=== PATIENT | male | born 1940 | race Caucasian/White ===

== ENCOUNTER 2017-10-06 07:06 | Day surgery (SDC) | payer MEDICARE ==
[2017-10-06 07:38] VITALS: BMI 28.3
[2017-10-06] MEDS ORDERED: Propofol 10 mg/ml Inj (20 ML) ONE (08:33)
[2017-10-06] MEDS ORDERED: Lactated Ringer's 1,000 ML IV ONE (08:35)
--- NOTE | 2017-10-06 08:37 | CP.SDSHP ---
Same Day Surgery H & P - History Proposed Procedure: EGD Pre-Op Diagnosis: Dysphagia - Previous Medical/Surgical History Endocrine/Metabolic: Thyroid Disease, Other Comments: Hyperlipidemia, BPH Previous Surgical History: Right lung surgery - Allergies Allergies: Allergies Sulfa (Sulfonamide Antibiotics) Allergy (Verified 10/06/17 07:37) RASH - Current Medications Current Medications: See reconciliation sheet - Physical Exam General Appearance: WD WN male in NAD Vital Signs: Vital Signs 10/06/17 07:42 Temperature 97.9 F Pulse Rate 76 Respiratory 16 Rate Blood Pressure 160/90 H O2 Sat by Pulse 98 Oximetry Mental Status: Alert & Oriented x3 Neuro: WNL Heart: WNL Lungs: WNL GI: WNL - {Optional Preform as Required} Abdomen: WNL - Impression Impression: Dysphagia Pt. Evaluated Today:Candidate for Anesthesia & Procedure: Yes - Date & Time Date: 10/06/17 Time: 08:38 Short Stay Discharge - Short Stay Discharge Admitting Diagnosis/Reason for Visit: OTHER DYSPHAGIA Disposition: HOME/ ROUTINE
[2017-10-06 14:58] VITALS: TEMP 97
[2017-10-06 15:01] VITALS: RESP 20
[2017-10-06 15:07] VITALS: BP 145/82; PULSE 80; O2SAT 99
== END 2017-10-06 10:25 | disposition home or self-care (01) ==
LOC: C.ENDO 07:06
PROVIDERS: ATTEND Internal Medicine Gastroenterology
DX: K29.70 Gastritis, unspecified, without bleeding (principal); E78.5 Hyperlipidemia, unspecified; K22.8 Other specified diseases of esophagus; K44.9 Diaphragmatic hernia without obstruction or gangrene
CPT/HCPCS: 43239; 88305; J2001; J2704; J7120

== ENCOUNTER 2017-10-20 08:12 | Day surgery (SDC) | payer MEDICARE ==
[2017-10-20] MEDS ORDERED: Propofol 10 mg/ml Inj (20 ML) ONE (10:01)
[2017-10-20] MEDS ORDERED: Midazolam 2 MG/2 ML VIAL ONE (10:01)
--- NOTE | 2017-10-20 10:06 | CP.SDSHP ---
Same Day Surgery H & P - History Proposed Procedure: eus Pre-Op Diagnosis: subepithelial lesion of esophagus - Allergies Allergies: Allergies Sulfa (Sulfonamide Antibiotics) Allergy (Verified 10/17/17 10:51) SWELLING - Physical Exam General Appearance: nl Vital Signs: Vital Signs 10/20/17 08:32 Temperature 99 F Pulse Rate 70 Respiratory 19 Rate Blood Pressure 143/86 O2 Sat by Pulse 99 Oximetry Mental Status: Alert & Oriented x3 Neuro: WNL Heart: WNL Lungs: WNL GI: WNL - {Optional Preform as Required} Abdomen: WNL - Impression Impression: subepithelial lesion of esophagus. eus Pt. Evaluated Today:Candidate for Anesthesia & Procedure: Yes Short Stay Discharge - Short Stay Discharge Admitting Diagnosis/Reason for Visit: SUBEPITHELIAL LESION OF ESOPHAGUS Disposition: HOME/ ROUTINE
[2017-10-20] MEDS ORDERED: Lactated Ringer's 1,000 ML IV ONE (10:07)
[2017-10-20] MEDS ORDERED: Strong Iodine Topical Sol. 5%-10% TOP ONE (10:25)
[2017-10-20] MEDS ORDERED: Lactated Ringer's 500 ML IV SCH (10:45)
[2017-10-20 11:01] VITALS: TEMP 98
[2017-10-20 11:09] VITALS: O2SAT 100
[2017-10-20 11:34] VITALS: BP 132/67; PULSE 70; RESP 20
== END 2017-10-20 12:05 | disposition home or self-care (01) ==
LOC: C.ENDO 08:12
PROVIDERS: ATTEND Internal Medicine
DX: K22.8 Other specified diseases of esophagus (principal); R13.10 Dysphagia, unspecified; Z88.2 Allergy status to sulfonamides
CPT/HCPCS: 43237; 43239; 88305; J2250; J2704; J7120

== ENCOUNTER 2018-04-27 06:43 | Day surgery (SDC) | payer MEDICARE ==
[2018-04-27 07:13] VITALS: BMI 27.9
[2018-04-27 07:28] VITALS: TEMP 97
[2018-04-27] MEDS ORDERED: Phenylephrine 10 mg/ml Inj ONE (08:10)
[2018-04-27] MEDS ORDERED: Propofol 10 mg/ml Inj (20 ML) ONE (08:11)
--- NOTE | 2018-04-27 08:35 | CP.SDSHP ---
Same Day Surgery H & P - History Proposed Procedure: Colonoscopy Pre-Op Diagnosis: History of polyps - Previous Medical/Surgical History Endocrine/Metabolic: Thyroid Disease Misc: Other Comments: Hyperlipidemia, BPH Previous Surgical History: Lung surgery - Allergies Allergies: Allergies Sulfa (Sulfonamide Antibiotics) Allergy (Verified 10/17/17 10:51) SWELLING - Current Medications Current Medications: See reconciliation sheet - Physical Exam General Appearance: WD WN male in NAD Vital Signs: Vital Signs 04/27/18 07:11 Temperature 97 F L Pulse Rate 95 H Respiratory 17 Rate Blood Pressure 132/75 O2 Sat by Pulse 96 Oximetry Mental Status: Alert & Oriented x3 Neuro: WNL Heart: WNL Lungs: WNL GI: WNL - {Optional Preform as Required} Abdomen: WNL - Impression Impression: History of polyps Pt. Evaluated Today:Candidate for Anesthesia & Procedure: Yes - Date & Time Date: 04/27/18 Time: 08:35 Short Stay Discharge - Short Stay Discharge Admitting Diagnosis/Reason for Visit: P/H/ COLONIC POLYPS Disposition: HOME/ ROUTINE
[2018-04-27] MEDS ORDERED: Lactated Ringer's 1,000 ML IV ONE (08:40)
[2018-04-27 10:22] VITALS: BP 129/81; PULSE 71; RESP 18; O2SAT 99
== END 2018-04-27 10:21 | disposition home or self-care (01) ==
LOC: C.ENDO 06:43
PROVIDERS: ATTEND Internal Medicine Gastroenterology
DX: D12.3 Benign neoplasm of transverse colon (principal); K57.90 Diverticulosis of intestine, part unspecified, without perforation or abscess without bleeding
CPT/HCPCS: 45380; 88305; J2001; J2370; J2704; J7120